=== PATIENT | male | born 1995 | race Caucasian/White ===

== ENCOUNTER 2017-04-21 13:42 | Emergency (ER) | payer SELFPAY ==
[2017-04-21 13:43] VITALS: BP 147/97; PULSE 89; RESP 20; TEMP 36.8; O2SAT 98; BMI 20.9
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
[2017-04-21] MEDS: Diphth,Pertuss(Acell),Tet Vac 0.5 ML Vial IM (14:43)
[2017-04-21 14:47] VITALS: BP 137/73; PULSE 79; RESP 16; O2SAT 97
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
[2017-04-21 15:22] VITALS: BP 149/90; PULSE 70; RESP 16; O2SAT 99
== END 2017-04-21 15:25 | disposition home or self-care (01) ==
PROVIDERS: Emergency Provider Emergency Medicine
DX: S20.211A Contusion of right front wall of thorax, initial encounter (principal); S80.812A Abrasion, left lower leg, initial encounter; S80.811A Abrasion, right lower leg, initial encounter; Z23 Encounter for immunization; Z72.0 Tobacco use; V43.62XA Car passenger injured in collision with other type car in traffic accident, initial encounter; Y93.I9 Activity, other involving external motion; Y92.410 Unspecified street and highway as the place of occurrence of the external cause; Y99.8 Other external cause status
CPT/HCPCS: 71260; 74177; 90715; 99285; Q9967; A4216